=== PATIENT | male | born 1945 | race Asian ===

== ENCOUNTER 2017-02-21 08:00 | Inpatient (IN) | payer BC, MEDICARE, OTHER ==
[~2017-02-21] VITALS: Ht 170.2 cm; Wt 59.3 kg
[2017-02-21] MEDS ORDERED: SODIUM CHLORIDE 0.9% 1,000 ML IV ONE (08:12)
[2017-02-21] MEDS ORDERED: SODIUM CHLORIDE FLUSH 10ML SYR IVF ONE ×2 (08:30→12:00)
[2017-02-21] MEDS ORDERED: PLEASE ENTER ALLERGIES MC SCH ×2 (08:30)
[2017-02-21] MEDS ORDERED: SODIUM CHLORIDE 0.9% 1,000ML IVBOLUS ONE (08:30)
[2017-02-21] MEDS ORDERED: ONDANSETRON 2MG/ML, 2ML IVPush ONE (08:30)
[2017-02-21] MEDS ORDERED: ONDANSETRON 2MG/ML, 2ML ONE (08:39)
[2017-02-21 08:51] LABS: BLOOD UREA NITROGEN 17 mg/dL (7-18)
[2017-02-21 08:56] LABS: ASPARTATE AMINO TRANSFERASE 12 U/L (15-37)
[2017-02-21 08:59] LABS: IS PT STATUS REG ER OR PRE ER? YES
[2017-02-21] MEDS ORDERED: METF500T4 PO (10:49)
[2017-02-21] MEDS ORDERED: ENAL20TA PO (10:49)
[2017-02-21] MEDS ORDERED: GLIM2TAB2 PO (10:49)
[2017-02-21] MEDS ORDERED: LOVA20TA2 PO (10:49)
[2017-02-21] MEDS ORDERED: SODIUM CHLORIDE FLUSH 10ML SYR IVF PRN (12:00)
[2017-02-21] MEDS ORDERED: LINA5TAB PO (13:55)
[2017-02-21 14:12] VITALS: BP 139/82
[2017-02-21] MEDS ORDERED: ENOXAPARIN 40 MG/0.4 ML SQ SCH (14:30)
[2017-02-21] MEDS ORDERED: ONDANSETRON ODT 4 MG PO PRN (14:30)
[2017-02-21] MEDS ORDERED: MAGNESIUM SULFATE PMX 2GM/50ML 50 ML IV ONE (15:00)
[2017-02-21 15:26] LABS: IS PT STATUS REG ER OR PRE ER? YES
[2017-02-21] MEDS: INSULIN ASPART 100 UNITS/ML, PEN SQ-INSULIN SCH ×2 (16:00→21:00)
[2017-02-21] MEDS: ENOXAPARIN 40 MG/0.4 ML SQ SCH (16:43)
[2017-02-21] MEDS: SODIUM CHLORIDE 0.9% 1,000 ML IV SCH (16:44)
[2017-02-21 18:30] VITALS: BP 136/63
[2017-02-21 20:27] LABS: IS PT STATUS REG ER OR PRE ER? NO
[2017-02-21 20:57] VITALS: BP_SYST 142; BP_SYST 147; BP_DIAS 93; BP_DIAS 96; BP_DIAS 97
[2017-02-21] MEDS: LOVASTATIN 40 MG TABLET PO SCH (21:14)
[2017-02-21] MEDS: ENALAPRIL 20MG TABLET PO SCH (21:14)
[2017-02-22] VITALS (9 sets, daily range): BP systolic 124–167; BP diastolic 64–90
[2017-02-22 04:53] LABS: ASPARTATE AMINO TRANSFERASE 17 U/L (15-37); BLOOD UREA NITROGEN 11 mg/dL (7-18)
[2017-02-22] MEDS: SODIUM CHLORIDE 0.9% 1,000 ML IV SCH ×2 (05:45→21:44)
[2017-02-22] MEDS: INSULIN ASPART 100 UNITS/ML, PEN SQ-INSULIN SCH ×4 (08:15→21:00)
[2017-02-22] MEDS: POTASSIUM ACID PHOSPHATE 500 MG TABLET.SOL PO SCH ×3 (08:15→21:43)
[2017-02-22] MEDS: ENALAPRIL 20MG TABLET PO SCH ×2 (08:16→21:43)
[2017-02-22] MEDS: ENOXAPARIN 40 MG/0.4 ML SQ SCH (16:17)
[2017-02-22] MEDS: LOVASTATIN 40 MG TABLET PO SCH (21:44)
[2017-02-23] MEDS: POTASSIUM ACID PHOSPHATE 500 MG TABLET.SOL PO SCH ×2 (01:51→08:34)
[2017-02-23 01:52] VITALS: BP_SYST 130; BP_SYST 137; BP_SYST 141; BP_DIAS 90; BP_DIAS 91; BP_DIAS 92
[2017-02-23 07:34] VITALS: BP 134/84
[2017-02-23 07:36] VITALS: BP 148/80
[2017-02-23 07:37] VITALS: BP 142/82
[2017-02-23] MEDS: INSULIN ASPART 100 UNITS/ML, PEN SQ-INSULIN SCH (08:34)
[2017-02-23] MEDS: ENALAPRIL 20MG TABLET PO SCH (08:34)
[2017-02-23] MEDS ORDERED: PNEUMOCOCCAL 23 VACCINE IM-VACC ONE (09:00)
== END 2017-02-23 10:35 | disposition home or self-care (01) | DRG 74 ==
LOC: ED 11:55 → EDIP 12:10 → 3NE 13:00 → 4WST 15:20 → DCLOUNGE 02-23 10:21
DX: G90.8 Other disorders of autonomic nervous system (principal); E87.2 Acidosis; F45.8 Other somatoform disorders; E78.5 Hyperlipidemia, unspecified; I11.9 Hypertensive heart disease without heart failure; Z79.84 Long term (current) use of oral hypoglycemic drugs; E11.65 Type 2 diabetes mellitus with hyperglycemia; E83.39 Other disorders of phosphorus metabolism; T38.3X5A Adverse effect of insulin and oral hypoglycemic [antidiabetic] drugs, initial encounter
CPT/HCPCS: 36415; 70450; 71010; 80053; 81003; 82010; 82800; 82962; 83036; 83605; 83690; 83735; 84100; 84443; 84484; 85025; 90732; 93306; 96361; 96374; J1650; J2405; J3475; J7030